=== PATIENT | female | born 1995 | race Caucasian/White ===

== ENCOUNTER 2021-02-15 15:37 | Emergency (ER) | payer MEDICAID, SELFPAY ==
[~2021-02-15] VITALS: Ht 154.9 cm; Wt 63.5 kg
[2021-02-15 15:53] VITALS: BP_SYST 108
--- NOTE | 2021-02-15 18:00 | NUR ---
Patient to ER bed 7 to gown for evaluation. Side rails up.
--- NOTE | 2021-02-15 18:05 | NUR ---
PT CAME IN FROM HOME C/O VAGINAL BLEEDING X 4 DAYS, TODAY BEING THE HEAVIEST. PT REPORTS PASSING NUMEROUS LARGE CLOTS AND USED ABOUT 5 PADS TODAY. STATES SHE IS ABOUT 4 WEEKS , WENT TO HOSPITAL YESTERDAY TO BE CHECKED. WAS TOLD TO RETURN TO A HOSPITAL IF WORSENED. PT IS CONCERNED SHE IS HAVING A MISCARRIAGE. , NO HX OF MISCARRIAGE. PT IS AMBULATORY, AAOX4, V/S STABLE
--- NOTE | 2021-02-15 18:33 | NUR ---
PT MOVED TO [place] [id number] FOR CONTINUATION OF CARE
--- NOTE | 2021-02-15 20:20 | NUR ---
Seen by wd orders and request to put pt in a private room/unavailablle at the moment.Pt mildly anxious.Claiming persistent abd cramping+ lumbar pains8/10 and steady. aware.
[2021-02-15 20:57] LABS: BASOPHILS # (AUTO) 0.1 K/uL (0.0-0.2); BASOPHILS % (AUTO) 0.8 % (0.0-2.0); EOSINOPHILS # (AUTO) 0.4 K/uL (0.0-0.4); EOSINOPHILS % (AUTO) 7.2 % (0.0-4.0); HEMATOCRIT 38.9 % (36-48); LYMPHOCYTES # (AUTO) 2.2 K/uL (1.0-5.5); LYMPHOCYTES % (AUTO) 36.8 % (20.5-51.5); MEAN CORPUSCULAR HEMOGLOBIN 29 pg (27-31); MEAN CORPUSCULAR HGB CONC 34 % (32-36); MEAN CORPUSCULAR VOLUME 86 fL (79.0-98.0); MONOCYTES # (AUTO) 0.9 K/uL (0.0-1.0); MONOCYTES % (AUTO) 14.3 % (1.7-9.3); NEUTROPHILS # (AUTO) 2.4 K/uL (1.8-7.7); NEUTROPHILS % (AUTO) 40.9 % (40.0-70.0); PLATELET COUNT (AUTO) 239 K/uL (130-430); RED BLOOD CELL COUNT(AUTO) 4.54 MIL/uL (4.2-6.2); RED CELL DISTRIBUTION WIDTH 15.7 % (9.0-15.0); WHITE BLOOD COUNT (AUTO) 5.9 K/uL (4.8-10.8)
--- NOTE | 2021-02-15 21:00 | NUR ---
TO Xray for Abd U/S via w/c accompanied by tech.
--- NOTE | 2021-02-15 21:30 | NUR ---
Back from Xray in NAD.Pt gowned and S.lock inserted aseptically over RAC #20.Voided bloody urine with moderate clots.Pads provided self/ care done.
[2021-02-15 21:55] LABS: INR 0.9 (0.8-1.2)
--- NOTE | 2021-02-15 22:00 | NUR ---
informed of Negative results.Pt served lunch box/ tolerated well.Waiting for results of Pelvic U/s done.
--- NOTE | 2021-02-15 22:50 | NUR ---
Reevaluated per with order to D/c home and to follow up with PMUrsula.Jeanie D/cd.Encouraged to increase oral fluid intake and provided/ tolerated well. No n/v.
--- NOTE | 2021-02-15 23:30 | NUR ---
Waited for pickle processor on the way.Kept warm and comfortable per request.D/cd home ambulatory wd BF in fair cond.VSS.
[2021-02-16 00:15] VITALS: BP_SYST 102
--- NOTE | 2021-02-16 00:30 | NUR ---
Reporter Anchor aware pt still in bed hallway/ okd to wait for pickup in bed.Pt requeted due to still blleeding.
== END 2021-02-16 00:15 | disposition home or self-care (01) ==
LOC: SED 15:37
DX: O03.9 Complete or unspecified spontaneous abortion without complication (principal)
CPT/HCPCS: 36415; 76856-TC; 84702; 85025; 85610-TC; 86900; 86901; 99284